=== PATIENT | female | born 1980 | race Hispanic/Latino ===

== ENCOUNTER 2021-07-15 08:08 | Emergency (ER) | payer BC, OTHER ==
[~2021-07-15] VITALS: Ht 165.1 cm; Wt 72.6 kg
[~2021-07-15 08:08] MED LIST: FLAGYL250 MG PO; LOMOTIL TABLET1 EACH PO
== END 2021-07-15 10:25 | disposition home or self-care (01) ==
LOC: ER 08:12
DX: J32.9 Chronic sinusitis, unspecified (principal); F31.9 Bipolar disorder, unspecified
CPT/HCPCS: 99282